=== PATIENT | female | born 1990 | race Caucasian/White ===

== ENCOUNTER 2017-02-14 15:56 | Emergency (ER) | payer MEDICAID ==
--- NOTE | 2017-02-14 16:00 | EDPHY ---
H & P Time Seen by Provider: 02/14/17 15:59 Source: Patient - Medical/Surgical History Hx Asthma: Yes Hx Chronic Respiratory Disease: No Hx Diabetes: No Hx Cardiac Disease: No Hx Renal Disease: No Hx Cirrhosis: No Hx Alcoholism: No Hx HIV/AIDS: No Hx Splenectomy or Spleen Trauma: No Other PMH: bipolar(/STATES" IF YOU QUIT SMOKING WHEN YOURE , IT COULD STRESS THE CHILD AND YOU COULD LOSE IT"-at a previous visit.). Exercise induced asthma,allergies to cottonwood trees - Social History Smoking Status: Light smoker Constitutional: Initial Vital Signs Temperature (C) 36.6 C 02/14/17 16:03 Heart Rate 95 02/14/17 16:03 Respiratory Rate 18 02/14/17 16:03 Blood Pressure 141/84 H 02/14/17 16:03 O2 Sat (%) 95 02/14/17 16:03 O2 Delivery Mode Room Air Allergies/Adverse Reactions: amoxicillin [Amoxicillin] Allergy (Verified 07/03/14 18:01) Penicillins Allergy (Verified 07/03/14 18:01) MOTHER IS ALLERGIC,HAS NEVER HAD IT Home Medications: Medication Instructions Recorded Pnv #78/Iron Asp Gly/FA#1/Dha 12/10/13 Hydrocodone/APAP 5/325 [Ramsey 1 - 2 tab PO Q4 PRN #30 tab 08/12/14 5/325 (*)] Ibuprofen [Motrin (*)] 600 mg PO Q6 PRN #60 tab 08/12/14 Lidocaine 2% Viscous [Lidocaine 2% 5 ml PO Q6 PRN #120 ml 08/25/14 Viscous (RX)] Medical Decision Making ED Course/Re-evaluation: CHIEF COMPLAINT: Vaginal bleeding HISTORY OF PRESENT ILLNESS: The patient is a 26-year-old female presenting with vaginal bleeding and passed clot. The patient took an " pill" 4 months ago. She has been spotting everyday for the past 3 months. Today she passed a clot in a gas station bathroom. She believes it is a product of conception. The patient used heroin yesterday and this morning. She denies abdominal pain or cramping. No nausea or vomiting. REVIEW OF SYSTEMS: A 10 point review of systems was performed and is negative with the exception of the elements mentioned in the history of present illness. PHYSICAL EXAM: HR, BP, O2 Sat, RR. Temp noted General Appearance: Alert, well hydrated, tearful, does not want to answer questions. Eyes: Pupils equal, round, reactive to light and accommodation, EOMI, no trauma , no injection. Ears: Clear bilaterally, no perforation, normal landmarks Nose: Atraumatic, no rhinorrhea, clear. Throat: There is no erythema or exudates, no lesions, normal tonsils, mucus membranes moist. Neck: Supple, 2+ carotid upstroke, nontender, no lymphadenopathy. Respiratory: No retractions, no distress, no wheezes, and no accessory muscle use. Lungs are clear to auscultation bilaterally. Cardiovascular: Regular rate and rhythm, no murmurs, rubs, or gallops. Bilateral carotid, radial, dorsalis pedis, and posterior tibial pulses intact. Good capillary refill all extremities. Gastrointestinal: Abdomen is soft, nontender, non-distended, no masses, no rebound, no guarding, no peritoneal signs. Musculoskeletal: Normal active ROM of all extremities, atraumatic. Neurological: Alert, appropriate, and interactive. The patient has normal DTRs and non-focal cranial nerves, motor, sensory, and cerebellar exam. Skin: No rashes, good turgor, no nodules on palpation. Past medical history: Asthma, Bipolar Past surgical history: Denies Family history: Noncontributory. Social history: Illicit drug use including meth and heroin. DIFFERENTIAL DIAGNOSIS: The differential diagnosis for the patient's vaginal bleeding included but was not limited to ectopic , menses, miscarriage , and dysfunctional uterine bleeding. MEDICAL DECISION MAKING: Patient presents with vaginal bleeding and passed clot. The patient took Plan B 4 months ago. She states she has had vaginal bleeding for the past 3 months. Today she passed a clot which she believes was a product of conception. She denies nausea or cramping. The patient has no abdominal pain on examination. Plan for pelvic ultrasound. I will check lab work. Patient's Beta HCG Quant is elevated at 212 suggesting spontaneous . Pelvic ultrasound is pending. Patient absconded from the ED with her IV in place. She is a heroin and meth addict. Alonzo HUGHES was called. The ultrasound was not completed because the patient became agitated. It is unclear if the patient has retained products of conception. - Data Points Laboratory Results: Laboratory Results 02/14/17 Unknown 02/14/17 Unknown 02/14/17 02/14/17 Unknown Unknown WBC 10.02 10^3/uL H 10^3/uL (3.80-9.50) RBC 4.22 10^6/uL 10^6/uL (4.18-5.33) Hgb 13.4 g/dL g/dL (12.6-16.3) Hct 37.2 % L % (38.0-47.0) MCV 88.2 fL fL (81.5-99.8) MCH 31.8 pg pg (27.9-34.1) MCHC 36.0 g/dL g/dL (32.4-36.7) RDW 12.9 % % (11.5-15.2) Plt Count 211 10^3/uL 10^3/uL (150-400) MPV 10.1 fL fL (8.7-11.7) Neut % (Auto) 58.7 % % (39.3-74.2) Lymph % (Auto) 35.2 % % (15.0-45.0) Nuckolls % (Auto) 4.9 % % (4.5-13.0) Eos % (Auto) 0.4 % L % (0.6-7.6) Baso % (Auto) 0.5 % % (0.3-1.7) Nucleat RBC Rel Count 0.0 % % (0.0-0.2) Absolute Neuts (auto) 5.88 10^3/uL 10^3/uL (1.70-6.50) Absolute Lymphs (auto) 3.53 10^3/uL H 10^3/uL (1.00-3.00) Absolute Monos (auto) 0.49 10^3/uL 10^3/uL (0.30-0.80) Absolute Eos (auto) 0.04 10^3/uL 10^3/uL (0.03-0.40) Absolute Basos (auto) 0.05 10^3/uL 10^3/uL (0.02-0.10) Absolute Nucleated RBC 0.00 10^3/uL 10^3/uL (0-0.01) Immature Gran % 0.3 % % (0.0-1.1) Immature Gran # 0.03 10^3/uL 10^3/uL (0.00-0.10) Sodium 138 mEq/L mEq/L (134-144) Potassium 3.9 mEq/L mEq/L (3.5-5.2) Chloride 102 mEq/L mEq/L (97-110) Carbon Dioxide 21 mEq/l L mEq/l (22-31) Anion Gap 15 mEq/L mEq/L (8-16) BUN 15 mg/dL mg/dL (7-23) Creatinine 0.8 mg/dL mg/dL (0.6-1.0) Estimated GFR > 60 Glucose 73 mg/dL mg/dL (70-100) Calcium 9.7 mg/dL mg/dL (8.5-10.4) Beta HCG, Quant 212.59 mIU/mL H mIU/mL (0.00-4.83) Departure - Departure Disposition: Against Medical Advice Clinical Impression: Absconded from the ED Additional Instructions: The patient absconded from the ED with IV in place. She is a heroin and meth addict. Alonzo HUGHES was called. Referrals: NONE *PRIMARY CARE P,. [Primary Care Provider] - As per Instructions Report Scribed for: Dave Sharma Report Scribed by: Kelsey Galvin Date of Report: 02/14/17 Time of Report: 16:13
[2017-02-14 16:09] VITALS: BP 141/84; PULSE 95; RESP 18; TEMP 97.9; O2SAT 95
[2017-02-14 16:24] LABS: % IMMATURE GRANULYOCYTES 0.3 % (0.0-1.1); ABSOLUTE IMMATURE GRANULOCYTES 0.03 10^3/uL (0.00-0.10); ADD DIFF? NO; ADD MORPH? NO; ADD SCAN? NO; ATYPICAL LYMPHOCYTE FLAG 10 (0-99); FRAGMENT RBC FLAG 0 (0-99); HEMATOCRIT 37.2 % (38.0-47.0); HEMOGLOBIN 13.4 g/dL (12.6-16.3); LEFT SHIFT FLG 0 (0-99); LIPEMIA HEMOLYSIS FLAG 90 (0-99); MEAN CELL HEMOGLOBIN 31.8 pg (27.9-34.1); MEAN CELL VOLUME 88.2 fL (81.5-99.8); MEAN PLATELET VOLUME 10.1 fL (8.7-11.7); PLATELET CLUMPS FLAG 0 (0-99); PLATELET COUNT 211 10^3/uL (150-400); RED BLOOD CELL COUNT 4.22 10^6/uL (4.18-5.33); RED CELL DISTRIBUTION WIDTH 12.9 % (11.5-15.2)
[2017-02-14 16:26] LABS: ANION GAP 15 mEq/L (8-16); CALCIUM 9.7 mg/dL (8.5-10.4); CARBON DIOXIDE 21 mEq/l (22-31); CHLORIDE 102 mEq/L (97-110); CREATININE 0.8 mg/dL (0.6-1.0); GLOMERULAR FILTRATION RATE > 60; GLUCOSE 73 mg/dL (70-100); POTASSIUM 3.9 mEq/L (3.5-5.2); SODIUM 138 mEq/L (134-144)
== END 2017-02-14 17:51 | disposition left against medical advice (07) ==
LOC: EDUNIT#
DX: N93.9 Abnormal uterine and vaginal bleeding, unspecified (principal); J45.909 Unspecified asthma, uncomplicated; F17.200 Nicotine dependence, unspecified, uncomplicated